=== PATIENT | female | born 1990 | race Caucasian/White ===

== ENCOUNTER → 2017-05-25 | Outpatient (CLI) | payer OTHER | END | disposition home or self-care (01) | LOC: CFH 14:16 | PROVIDERS: ATTEND Nurse Practitioner Family | DX: N63 Unspecified lump in breast (principal); N64.4 Mastodynia | CPT/HCPCS: 76642 ==

== ENCOUNTER → 2017-05-30 | Outpatient (CLI) | payer OTHER ==
[~2017-05-30] MED LIST: LIDOCAINE 1%-EPI 1:100K, 20ML ONE; SODIUM BICARBONATE 4.2%, 5ML ONE
== END ==
LOC: CFH 09:26
PROVIDERS: ATTEND Nurse Practitioner
DX: N63 Unspecified lump in breast (principal)
CPT/HCPCS: 19000; 19083; 76641; 87070; 87075; 87102; 87116; 87205; 87206; 88305; G0204; J3490; 87015; 87077

== ENCOUNTER 2017-06-08 18:33 | Emergency (ER) | payer OTHER ==
[~2017-06-08] VITALS: Ht 157.5 cm; Wt 46.7 kg
[2017-06-08] MEDS ORDERED: FAMOTIDINE 20 MG TABLET PO ONE ×2 (19:00→19:30)
[2017-06-08] MEDS ORDERED: FAMOTIDINE 20 MG TABLET ONE (19:10)
[2017-06-08 19:44] VITALS: BP 110/66
== END 2017-06-08 19:52 | disposition home or self-care (01) ==
LOC: ED 19:46
DX: L27.0 Generalized skin eruption due to drugs and medicaments taken internally (principal)
CPT/HCPCS: 99284; J7512; Q0177

== ENCOUNTER 2017-06-11 07:35 | Day surgery (SDC) | payer OTHER ==
[~2017-06-11] VITALS: Ht 157.5 cm; Wt 46.9 kg
[2017-06-11] MEDS ORDERED: LACTATED RINGERS 1,000 ML IV SCH (08:10)
[2017-06-11 08:16] VITALS: BP 110/77
[2017-06-11 08:17] LABS: HCG UR LOT HCG7030192
[2017-06-11] MEDS ORDERED: HYDR10TA4 PO (08:17)
[2017-06-11] MEDS ORDERED: PRED5TAB PO (08:17)
[2017-06-11] MEDS ORDERED: LIDOCAINE 1%, 2ML ONE (08:18)
[2017-06-11] MEDS ORDERED: LIDOCAINE 1%, 2ML SQ PRN (08:30)
[2017-06-11 08:33] LABS: HCG UR OBC PASS
[2017-06-11 08:35] LABS: HEMATOCRIT 36.8 % (34.6-47.8); HEMOGLOBIN 11.7 g/dL (11.7-16.4); WHITE BLOOD COUNT 5.4 x10^3/uL (3.4-10)
[2017-06-11] MEDS ORDERED: FENTANYL PF 100 MCG/2ML ONE ×2 (08:50)
[2017-06-11] MEDS ORDERED: HYDROmorphone 1 MG/ML, 1ML ONE (08:51)
[2017-06-11] MEDS ORDERED: MIDAZOLAM 1 MG/ML, 2ML ONE (08:51)
[2017-06-11] MEDS ORDERED: DEXAMETHASONE 4 MG/ML, 1ML ONE (09:55)
[2017-06-11] MEDS ORDERED: ONDANSETRON 2MG/ML, 2ML ONE (09:55)
[2017-06-11] MEDS ORDERED: PROPOFOL 10 MG/ML, 20ML ONE (09:55)
[2017-06-11] MEDS ORDERED: EPINEPHRINE 1 MG/ML, 1ML ONE (10:01)
[2017-06-11] MEDS ORDERED: BUPIVACAINE/PF 0.5% ONE (10:01)
[2017-06-11] MEDS ORDERED: OXYcodone 5 MG/5 ML ORAL.SOL UDC ONE (10:25)
[2017-06-11] MEDS ORDERED: HYDROmorphone 1 MG/ML, 1ML IV PRN (10:30)
[2017-06-11] MEDS ORDERED: OXYcodone 5 MG/5 ML ORAL.SOL UDC PO PRN (10:30)
[2017-06-11] MEDS ORDERED: HYDROcodone/APAP 7.5-325MG/15ML UDC PO PRN (10:30)
[2017-06-11] MEDS ORDERED: FENTANYL PF 100 MCG/2ML IV PRN (10:30)
[2017-06-11] MEDS ORDERED: ACETAMINOPHEN 325 MG TABLET PO PRN (10:30)
[2017-06-11] MEDS ORDERED: ONDANSETRON 2MG/ML, 2ML IVPush PRN (10:30)
== END 2017-06-11 12:15 ==
LOC: OUT 07:35
PROVIDERS: ATTEND Surgery
DX: N61.1 Abscess of the breast and nipple (principal); D50.9 Iron deficiency anemia, unspecified; Z98.890 Other specified postprocedural states; Z72.89 Other problems related to lifestyle; Z87.891 Personal history of nicotine dependence; Z88.1 Allergy status to other antibiotic agents
CPT/HCPCS: 10060; 36415; 81025; 85025; 87070; 87075; 87205; J0171; J1100; J1170; J2250; J2405; J2704; J3010; J3490; J7120